=== PATIENT | female | born 1980 | race Caucasian/White ===

== ENCOUNTER 2021-08-09 19:42 | Emergency (ER) | payer SELFPAY ==
[~2021-08-09] VITALS: Ht 162.6 cm; Wt 72.6 kg
--- NOTE | 2021-08-09 21:15 | NUR ---
XRAY AT BEDSIDE
--- NOTE | 2021-08-09 21:28 | NUR ---
SENT COVID AND FLU SWABS TO LAB
[2021-08-09] MEDS ORDERED: AZIT250T13 PO (22:06)
[2021-08-09] MEDS ORDERED: ACET-2605 PO (22:06)
[2021-08-09] MEDS ORDERED: DEXAMETHASONE SOD PHOSPHATE 4 MG/ML VIAL IM ONE (22:30)
[2021-08-09] MEDS ORDERED: DEXAMETHASONE SOD PHOSPHATE 10 MG/ML VIAL ONE (22:38)
--- NOTE | 2021-08-09 22:40 | NUR ---
Patient discharged to home in stable condition. Written and verbal after care instructions given. Patient verbalizes understanding of instruction. Pt ambulatory with a steady gait
[2021-08-09 22:47] VITALS: BP 118/73
== END 2021-08-09 22:40 | disposition home or self-care (01) ==
LOC: ER 19:54
DX: U07.1 COVID-19 (principal)
CPT/HCPCS: 71045; 87426; 87804; 96372; 99284; C9803; J1100

== ENCOUNTER 2024-02-22 17:31 | Emergency (ER) | payer MEDICAID, OTHER ==
[~2024-02-22] VITALS: Ht 172.7 cm; Wt 74.8 kg
[~2024-02-22 17:31] MED LIST: ACET-2605 PO; AZIT250T13 PO
[2024-02-22 18:01] VITALS: BP 136/75; TEMP 98.3
[2024-02-22] MEDS ORDERED: CLOT15CR35 TP (18:30)
[2024-02-22 18:56] VITALS: O2SAT 98
== END 2024-02-22 18:56 | disposition home or self-care (01) ==
LOC: ER 17:34
DX: B35.3 Tinea pedis (principal); Z60.2 Problems related to living alone

== ENCOUNTER 2024-04-10 20:10 | Emergency (ER) | payer MEDICAID ==
[~2024-04-10] VITALS: Ht 165.1 cm; Wt 69.9 kg
[~2024-04-10 20:10] MED LIST changes: +CLOT15CR35 TP
[2024-04-10 21:13] LABS: BASOPHILS % (AUTO) 0.5 % (0.0-2.0); EOSINOPHILS % (AUTO) 0.3 % (0.0-6.0); HEMATOCRIT 41 % (33-45); HEMOGLOBIN 13.7 g/dL (11.5-14.8); LYMPHOCYTES # (AUTO) 2.4 K/uL (0.8-4.8); LYMPHOCYTES % (AUTO) 27.6 % (20.0-44.0); MEAN CORPUSCULAR HEMOGLOBIN 31 PG (26.0-33.0); MEAN CORPUSCULAR HGB CONC 33 g/dl (31.0-36.0); MEAN CORPUSCULAR VOLUME 95 fL (82-100); MONOCYTES # (AUTO) 0.6 K/uL (0.1-1.30); MONOCYTES % (AUTO) 6.6 % (2.0-12.0); NEUTROPHILS # (AUTO) 5.6 K/uL (1.8-8.9); PLATELET COUNT (AUTO) 307 K/uL (150-450); RED BLOOD CELL COUNT(AUTO) 4.39 MIL/uL (4.0-5.2); RED CELL DISTRIBUTION WIDTH 14.3 % (11.5-15.0); WHITE BLOOD COUNT (AUTO) 8.7 K/uL (4.3-11.0)
[2024-04-10 21:20] LABS: APPEARANCE,URINE Slightly Cloudy (CLEAR); BILIRUBIN,URINE Negative (NEGATIVE); BLOOD, URINE Moderate Ery/uL (NEGATIVE); COLOR,URINE YELLOW (YELLOW); KETONES,URINE Trace mg/dL (NEGATIVE); LEUKOCYTE ESTERASE ,URINE Trace (NEGATIVE); NITRITE, URINE Negative (NEGATIVE); PROTEIN,URINE Negative (NEGATIVE); UGLUCOSE Negative (NEGATIVE); UROBILINOGEN,URINE 0.2 EU/dL (0.2)
[2024-04-10 21:24] LABS: PREGNANCY TEST URINE QUAL NEGATIVE (NEGATIVE)
[2024-04-10 21:26] LABS: CALCIUM, SERUM 8.6 mg/dL (8.5-10.1); CREATININE 0.7 mg/dL (0.6-1.3); POTASSIUM 3.7 mmol/L (3.5-5.1)
[2024-04-10 21:39] LABS: ALBUMIN 3.2 g/dL (3.4-5.0); BILIRUBIN,DIRECT 0.1 mg/dL (0.0-0.2); BILIRUBIN,TOTAL 0.3 mg/dL (0.2-1.0); TOTAL PROTEIN, SERUM 7.1 g/dL (6.4-8.2)
[2024-04-10 21:44] LABS: ADD URINE CULTURE YES; BACTERIA,URINE 1+ /HPF (None Seen); RBC,URINE 21-50 /HPF (0-2); SQUAMOUS EPITHELIAL CELL,UR Few /HPF (None Seen)
[2024-04-10] MEDS ORDERED: CEPH500C2 PO (22:59)
[2024-04-10] MEDS ORDERED: IBUP-1955 PO (22:59)
[2024-04-10] MEDS ORDERED: CYCL5TAB PO (22:59)
[2024-04-10] MEDS ORDERED: ACET-2605 PO (22:59)
[2024-04-10] MEDS ORDERED: ACETAMINOPHEN ES 500 MG TABLET ONE (23:11)
[2024-04-10] MEDS ORDERED: LIDOCAINE 5% (PATCH) 1 EA PATCH TP ONE (23:11)
[2024-04-10] MEDS ORDERED: CEPHALEXIN MONOHYDRATE 500 MG CAPSULE PO ONE (23:11)
[2024-04-10] MEDS: CEPHALEXIN MONOHYDRATE 500 MG CAPSULE PO ONE (23:12)
[2024-04-10] MEDS: LIDOCAINE 5% (PATCH) 1 EA PATCH TP ONE (23:12)
[2024-04-10] MEDS: ACETAMINOPHEN ES 500 MG TABLET PO ONE (23:12)
[2024-04-10 23:16] VITALS: BP 116/81; TEMP 98; O2SAT 97
== END 2024-04-10 23:16 | disposition home or self-care (01) ==
LOC: ER 20:16
DX: N39.0 Urinary tract infection, site not specified (principal); G89.29 Other chronic pain; M54.59 Other low back pain; Z60.2 Problems related to living alone
CPT/HCPCS: 36415; 80048-TC; 80076-TC; 81001; 83690-TC; 84703-TC; 85025-TC; 87086-TC

== ENCOUNTER 2025-02-25 16:36 | Emergency (ER) | payer MEDICAID, OTHER ==
[~2025-02-25] VITALS: Ht 175.3 cm; Wt 77.1 kg
[~2025-02-25 16:36] MED LIST changes: +CEPH500C2 PO; +CYCL5TAB PO; +IBUP-1955 PO
[2025-02-25 17:29] LABS: ADD URINE CULTURE NO; APPEARANCE,URINE CLEAR (CLEAR); BACTERIA,URINE Few /HPF (None Seen); BILIRUBIN,URINE Negative (NEGATIVE); BLOOD, URINE Negative Ery/uL (NEGATIVE); COLOR,URINE YELLOW (YELLOW); KETONES,URINE Negative (NEGATIVE); LEUKOCYTE ESTERASE ,URINE Negative (NEGATIVE); NITRITE, URINE NEGATIVE (NEGATIVE); PH,URINE 7.5 (5.0-8.0); PROTEIN,URINE Trace mg/dl (NEGATIVE); RBC,URINE 0-2 /HPF (0-2); SQUAMOUS EPITHELIAL CELL,UR Few /HPF (None Seen); UGLUCOSE Negative (NEGATIVE); UROBILINOGEN,URINE 0.2 EU/dL (0.2); WBC,URINE 0-2 /HPF (0-3)
[2025-02-25 17:32] LABS: PREGNANCY TEST URINE QUAL NEGATIVE (NEGATIVE)
[2025-02-25] MEDS ORDERED: ACETAMINOPHEN 325 MG TABLET ONE (17:37)
[2025-02-25] MEDS: ACETAMINOPHEN 325 MG TABLET PO ONE (17:39)
[2025-02-25 21:45] VITALS: BP 112/62; TEMP 98.7; O2SAT 99
== END 2025-02-25 21:45 | disposition home or self-care (01) ==
LOC: ER 16:42
DX: J02.9 Acute pharyngitis, unspecified (principal); N94.819 Vulvodynia, unspecified; R30.0 Dysuria; Z60.2 Problems related to living alone; Z79.899 Other long term (current) drug therapy
CPT/HCPCS: 99283; 87081; 84703; 81001; 87210; 87491 ×2; 87591; J7040; A4223

== ENCOUNTER 2025-08-30 13:25 | Emergency (ER) | payer MEDICAID, OTHER ==
[~2025-08-30] VITALS: Ht 157.5 cm; Wt 81.6 kg
[2025-08-30] MEDS ORDERED: ERYT3.5O9 LEFTEYE (13:54)
[2025-08-30 14:13] VITALS: BP 110/68; TEMP 97.8; O2SAT 98
== END 2025-08-30 14:16 | disposition home or self-care (01) ==
LOC: ER 13:29
DX: H00.014 Hordeolum externum left upper eyelid (principal); Z60.2 Problems related to living alone